=== PATIENT | male | born 1930 | race Caucasian/White ===

== ENCOUNTER → 2017-05-15 | Outpatient (CLI) | payer MEDICARE, OTHER ==
[~2017-05-15] MED LIST: ACETAMINOPHEN-1 EAC1 PO; ADULT LOW DOSE81 MG PO; ARTHROTEC; ASPIRIN325 PO; BENICAR20 MG PO; BUTRANS1 EAC1 TRANSDERM; CARDIZEM CD240 MG PO; COLACE100 MG PO; DUONEB 2.5-0.5 M3 ML IH; FAMOTIDINE PO; FLOMAX0.4 MG PO; HYDROCODONE-AP1 EAC6 PO; JARDIANCE10 MG PO; LASIX 20 MG TAB20 MG PO; LASIX 40 MG TAB40 M2 PO; LEVAQUIN 500 M500 M2 PO; MIRALAX17 GM PO; NEURONTIN 300300 M1 PO; NEXIUM40 MG PO; OXYCODONE HCL 55 MG PO; PEPCID20 MG; PERCOCET 5-3251 EACH PO; PREDNISONE 10 M10 MG PO; PREDNISONE 20 M20 M1 PO; TRAVATAN Z2.5 ML OPHTHALMIC; VOLTAREN GEL 1100 GM TOP; ZANTAC 150MG T150 MG PO; [UNRECOGNIZED DRUG - OTHER]
== END ==
LOC: M.RAD 15:46
DX: M47.892 Other spondylosis, cervical region (principal)

== ENCOUNTER → 2017-05-22 | Outpatient (CLI) | payer MEDICARE, OTHER ==
--- NOTE | 2017-05-27 08:02 | PAINCON ---
[address] [address] PAIN MANAGEMENT CONSULTATION Name: PARAM PINK [facility] [id number] Admission: 05/22/17 Attend Phys: Jocelin Presley Discharge: Date of : 31 Report #: [id number] THIS REPORT FOR: //name// CC: Hernandez Sanabria The patient is an 86-year-old gentleman, prior seen in the pain clinic about a year and a half ago, December of 2015, had the series of 3 cervical epidural injections, November 29, December 29 and 01/11/2016. Had good overall improvement and was somewhat lost to follow up. He returns to pain clinic today as a new consult, was referred by Dr. Etienne for consideration for facet joint injections. The patient has ongoing pain in his neck, left shoulder and arm but the pain is primarily present over the right side of his neck. Notes pain is exacerbated with cervical rotation and side bending. Does have a little paresthesia into the left hand. He is status post bilateral carpal tunnel surgery. The right side was very successful. Left side still has some ongoing symptoms. Medication list was reconciled. The patient has hypertension, gastroesophageal reflux and benign prostatic hypertrophy. He is on no blood thinners nor antibiotics. Does take occasional oxycodone for pain. He has been started on Jardiance for non-insulin dependent diabetes. Physical exam shows 5 feet 10 inches, 171 pound gentleman, BMI is 24.6 kilograms per meter squared. Blood pressure 127/54, pulse 74, respirations 16. Cervical range of motion is limited, tender over the cervical facets bilaterally. Upper extremity strength is generally preserved. Does have paresthesia in the left hand. Heart is regular and rhythmical. Lungs are clear. Gait is tandem though balance is a little bit poor. Reviewed diagnostic findings including flexion, extension x-rays taken at [facility], which showed no malalignment with flexion, extension, though he does have spondylolisthesis at L4-L5. Reviewed MRI from [facility], 02/06/2017. Does note right C3-C4 and C4-C5 facet arthropathy as well as left C5-6, C6-7 facet arthropathy. No significant spinal stenosis noted. ASSESSMENT: Symptomatic cervical spondylosis by clinical exam and history, cervical radiculopathy and carpal tunnel syndrome by history. RECOMMENDATION: Long discussion with the patient today. We have elected to proceed with right cervical facet joint injections at C3-4 and C4-5. If this affords transient relief, we will consider medial branch dorsal rami at C3, C4 and C5, in consideration of radiofrequency neurolysis of same. ASSESSMENT: Symptomatic [place] [address] PAIN MANAGEMENT CONSULTATION Name: PARAM PINK [facility] [id number] Admission: 05/22/17 Attend Phys: Jocelin Presley Discharge: Date of : 31 Report #: [id number] PROCEDURE: Cervical facet joints x 2, right C3-4 and C4-5. PROCEDURE NOTE: After written informed consent was obtained, the patient was taken to fluoroscopy suite, placed in prone position. After sterile prep and drape, skin was raised. A 22-gauge stylet needle was placed to contact posterior aspect of the right C3-C4 and right C4-C5 facet joints, the middle of the lateral mass and posterior joint on lateral view. AP and lateral projections showed good needle placement. A 3 mg of Decadron plus 1 mL of 0.5% preservative free bupivacaine was injected at each site. Both needles removed. The area was cleansed. Band-Aid applied. The patient monitored for an appropriate period of time, discharged in good stable condition. Follow up in 2 weeks for reevaluation. <ELECTRONICALLY SIGNED> By: Celso Sanabria DO 05/27/17 0802 1414 [id number] Sanabria DO /nt
== END | disposition home or self-care (01) ==
LOC: M.PC 01:14
DX: M47.812 Spondylosis without myelopathy or radiculopathy, cervical region (principal); I10 Essential (primary) hypertension; K21.9 Gastro-esophageal reflux disease without esophagitis; N40.0 Benign prostatic hyperplasia without lower urinary tract symptoms; E11.9 Type 2 diabetes mellitus without complications; Z88.0 Allergy status to penicillin; Z79.82 Long term (current) use of aspirin; Z79.891 Long term (current) use of opiate analgesic; Z79.899 Other long term (current) drug therapy; Z98.890 Other specified postprocedural states

== ENCOUNTER → 2017-06-05 | Outpatient (CLI) | payer MEDICARE, OTHER ==
--- NOTE | 2017-06-08 09:57 | PAINCON ---
[address] [address] PAIN MANAGEMENT CONSULTATION Name: PARAM PINK Room: [facility] Sami#: [id number] Admission: 06/05/17 Attend Phys: Jocelin Presley Discharge: Date of : 31 Report #: [id number] THIS REPORT FOR: //name// CC: Hernandez Sanabria The patient is a very pleasant 86-year-old gentleman, he had prior been treated for cervical radiculopathy back in 2015, was lost to follow up, last seen 05/22/2017. He is having ongoing pain in the right side of his neck, we discerned that was likely secondary to cervical spondylosis. CT of the cervical spine did note advanced facet arthritis on the right at C3-C4, C4-C5 as well as C5-C6. Physical exam noted symptoms primarily at the C3-C4 and C4-C5 facets. We progressed to target the right C3-C4 and C4-C5 facet joints at last visit. The patient had good yet transient relief with this procedure. We have elected to move forward with medial branch dorsal rami diagnostic blocks at C2, 3 and 4. The patient, however, took a pain tablet today and now actually is fairly pain free. He does note, however, the pain does significantly interfere with function and range of motion. He has a tracheostomy and wears an appliance that wraps around his neck, this may also exacerbate some of the cervical pain. He does take some oxycodone and prednisone prescribed by his primary treating physician. PHYSICAL EXAMINATION: Does note a 5 feet 10 inches, 169-pound gentleman, BMI is 24 kg/m2. Blood pressure wnl, pulse 77, and, respirations are 18. Again, subjective pain score is fairly nominal at present, 0-1, but does note he took a pain pill. Modest tenderness to palpation over the superior cervical facets. Tracheostomy in place. Upper extremity strength is preserved, though he does have some cervical radicular paresthesia in the left hand, though hand grasp is symmetric and deep tendon reflexes are preserved. ASSESSMENT: Symptomatic cervical spondylosis by clinical exam and history, component of cervical radiculopathy. RECOMMENDATIONS: As noted above, we will plan on moving forward with diagnostic medial branch dorsal rami block, right C2, 3, and 4. If this affords transient relief, we will consider moving forward with radiofrequency neurolysis of same. We will plan on doing the diagnostic block in 2 weeks (next week the patient is turkey hunting). <ELECTRONICALLY SIGNED> By: Celso Sanabria DO 06/08/17 0957 1213 [id number] Sanabria DO /nt
== END ==
LOC: M.PC 02:57
DX: M47.22 Other spondylosis with radiculopathy, cervical region (principal)

== ENCOUNTER → 2017-06-19 | Outpatient (CLI) | payer MEDICARE, OTHER ==
--- NOTE | 2017-07-24 07:09 | PAINCON ---
[facility] [address] [place] [address] PAIN MANAGEMENT CONSULTATION Name: PARAM PINK Room: [facility] Sami#: [id number] Admission: 06/19/17 Attend Phys: Jocelin Presley Discharge: Date of : 31 Report #: [id number] THIS REPORT FOR: //name// CC: Hernandez Sanabria HISTORY OF PRESENT ILLNESS: The patient is a very pleasant 86-year-old gentleman, prior seen for symptomatic cervical radiculopathy back in 2015, lost to followup. He returned to the pain clinic in May of this year having significant pain in the right side of his neck. I did perform C3-C4 and C4-C5 cervical facet joint injections at the last visit, with only transient improvement. We elected to move forward with the medial branch dorsal rami diagnostic block today. This was accomplished, right C2, C3 and C4, with really no change in the recovery room. Ultimately, with ongoing pain in the right neck and shoulder, some chronic paresthesia in the left index finger (status post incomplete carpal tunnel repair), we talked about therapeutic options moving forward. Given the lack of significant efficacy today, we elected not to schedule for RFL. We will simply continue with medical management. We will trial Voltaren gel topically. The patient has been using oxycodone 5 mg b.i.d., fairly low-dose opioid, roughly equivalent to 15 mg of morphine a day, but after years and losing efficacy, we elected to trial a Butrans patch. He has significant comorbidities including oxygen-dependent COPD and again status post tracheostomy. We did want to be very careful with his oxygen supplementation. We do not drive his CO2 drive down with too much opioid. We elected to trial Butrans patch at 5 mcg for 7 days. If this affords some relief, we will continue; if this affords no significant relief, we will increase it to 10 mcg and I will see the patient back in 2 weeks for evaluation for medical management. ASSESSMENT: 1. Symptomatic cervical spondylosis; cervical radiculopathy; neck pain; axial back pain, requiring chronic complex medication management and comorbidity including significant pulmonary disease. 2. Cervical spondylosis. PROCEDURE: Right medial branch dorsal rami block, C2, C3 and C4. PROCEDURE NOTE: After written and informed consent was obtained, the patient was placed in the prone position. Sterile prep and drape was accomplished. Three 22-gauge stylet needles were placed to contact superior articular processes at C2, C3 and C4, adjacent to the C2, C3 and four medial branch dorsal. AP and lateral projections showed good needle placement. One mL of a 50:50 mix of 0.5% preservative-free bupivacaine plus 1.5% preservative-free Xylocaine with 1:200k epi was injected at each site. All 3 needles were removed. The area was cleansed, Band-Aids were applied. The patient monitored for an appropriate period of time. [place] [address] PAIN MANAGEMENT CONSULTATION Name: PARAM PINK Room: [facility]#: [id number] Admission: 06/19/17 Attend Phys: Jocelin Presley Discharge: Date of : 31 Report #: [id number] significant improvement of pain and we proceeded with the aforementioned clinical visit at that time. <ELECTRONICALLY SIGNED> By: Celso Sanabria DO 07/24/17 0709 1434 [id number] Sanabria DO /
== END | disposition home or self-care (01) ==
LOC: M.PC 03:03
DX: M47.812 Spondylosis without myelopathy or radiculopathy, cervical region (principal); G89.29 Other chronic pain; J44.9 Chronic obstructive pulmonary disease, unspecified; Z79.891 Long term (current) use of opiate analgesic; Z99.81 Dependence on supplemental oxygen; Z93.0 Tracheostomy status; Z88.0 Allergy status to penicillin; Z87.19 Personal history of other diseases of the digestive system; Z79.82 Long term (current) use of aspirin; Z79.899 Other long term (current) drug therapy

== ENCOUNTER → 2017-07-03 | Outpatient (CLI) | payer MEDICARE, OTHER ==
--- NOTE | 2017-07-04 07:19 | PAINCON ---
[facility] [address] [place] [address] PAIN MANAGEMENT CONSULTATION Name: PARAM PINK [facility] [id number] Admission: 07/03/17 Attend Phys: Jocelin Presley Discharge: Date of : 31 Report #: [id number] THIS REPORT FOR: //name// CC: Hernandez Sanabria The patient is a pleasant 86-year-old gentleman prior seen in the pain clinic 06/19/2017. The patient has ongoing cervical spondylosis and component of cervical radiculopathy. Last visit 06/19/2017, we performed right C2, C3 and C4 medial branch dorsal rami. Started the patient on Butrans 5 mcg patch. Unfortunately, the patient notes that while he had paresthesia and a "numb" sensation in the posterior occiput area for several days, he really had no significant relief from the cervical spondylotic and upper neck pain. He did have some subjective vertigo. He started the Butrans patch at 5 mcg for 7 days. He also had good relief with this. He is able to hold his neck upright a little better without pain. Unfortunately, he thought the Butrans patch may be causing his subjective vertigo when he lifted his head up. As this is fairly classic sequelae from third occipital nerve block and given the fact that he does not have positional vertigo at present, I suggest that he re-trial the Butrans patch. Otherwise, the patient is using Voltaren gel topically, takes prednisone 10 mg one-half tablet b.i.d. and all affording some efficacy. He rates his pain fairly nominal at present though does get up to 10 with some activity and it has been 10 within the past week. He uses oxycodone 5 mg 0-2 a day as prescribed by Dr. Domingo. His daughter tells me that when he was using the Butrans 5 mcg patch, he was more functional, held his head up a little higher and had less need for p.r.n. oxycodone. After a long discussion with the patient today, we have elected to have him start back on his Butrans patch at 5 mcg. If this does afford good relief and does not restart his subjective vertigo (I highly doubt this will be the case). I have taken the liberty of renewing Butrans 5 mcg q. 7 days, 4 patches with 3 refills. I will have him follow up with Dr. Domingo for ongoing medication management. I am leaving the practice. If Dr. Domingo is comfortable writing for a low dose Butrans patch, I think it is certainly reasonable to use this along with p.r.n. half oxycodone 5 mg tablets for breakthrough pain. Discharged in good and stable condition. Thank you for allowing me to participate in the patient's care. Currently, no interventional therapy is warranted. <ELECTRONICALLY SIGNED> By: Celso Sanabria DO 07/04/17 0719 1453 [id number] Sanabria DO /nt
== END ==
LOC: M.PC 03:37
DX: M47.892 Other spondylosis, cervical region (principal); M54.12 Radiculopathy, cervical region

== ENCOUNTER → 2018-02-28 | Outpatient (CLI) | payer MEDICARE, OTHER | LOC: M.RAD 09:57 | DX: S92.492A Other fracture of left great toe, initial encounter for closed fracture (principal); M19.072 Primary osteoarthritis, left ankle and foot; M25.775 Osteophyte, left foot; M79.89 Other specified soft tissue disorders; X58.XXXA Exposure to other specified factors, initial encounter; Y93.89 Activity, other specified; Y92.89 Other specified places as the place of occurrence of the external cause; Y99.8 Other external cause status ==